=== PATIENT | female | born 1960 | race Two or more races ===

== ENCOUNTER → 2024-06-20 13:43 | Outpatient (REF) | payer BC, SELFPAY | LOC: WDC 13:43 | PROVIDERS: ATTENDING PHYSICIAN Nurse Practitioner Adult Health | DX: Z12.31 Encounter for screening mammogram for malignant neoplasm of breast (principal); Z12.39 Encounter for other screening for malignant neoplasm of breast | CPT/HCPCS: 77063; 77067 ==

== ENCOUNTER → 2024-11-19 15:03 | Outpatient (REF) | payer BC, SELFPAY | LOC: RAD 15:03 | PROVIDERS: ATTENDING PHYSICIAN Student in an Organized Health Care Education/Training Program | DX: M25.511 Pain in right shoulder (principal); M25.512 Pain in left shoulder | CPT/HCPCS: 73030 ==

== ENCOUNTER 2025-05-27 06:27 | Day surgery (SDC) | payer BC, SELFPAY ==
[2025-05-27] VITALS (10 sets, daily range): BP systolic 107–124; BP diastolic 63–79; BMI 29.3
[2025-05-27] MEDS: TYLENOL 1000 MG PO (11:05)
[2025-05-27] MEDS: CELEBREX 200 MG PO (11:05)
[2025-05-27] MEDS: NORMOSOL-R/PLASMALYTE-A 1000 IV (11:17)
== END 2025-05-27 14:55 | disposition home or self-care (01) ==
LOC: SDS 06:27
PROVIDERS: ATTENDING PHYSICIAN Surgery
DX: K64.2 Third degree hemorrhoids (principal)
CPT/HCPCS: 46947; 88304

== ENCOUNTER → 2025-06-21 15:45 | Outpatient (REF) | payer BC, SELFPAY | LOC: WDC 15:45 | PROVIDERS: ATTENDING PHYSICIAN Nurse Practitioner Adult Health | DX: Z12.31 Encounter for screening mammogram for malignant neoplasm of breast (principal); Z12.39 Encounter for other screening for malignant neoplasm of breast | CPT/HCPCS: 77063; 77067 ==